=== PATIENT | male | born 1950 | race Caucasian/White ===

== ENCOUNTER 2017-08-18 20:44 | Inpatient (IN) | payer OTHER, MEDICARE ==
[~2017-08-18] VITALS: Ht 182.9 cm; Wt 113.9 kg
[~2017-08-18 20:44] MED LIST: ASPI-1009 PO; CHOL100010 PO; CLON-529 PO; CYCL-394 PO; FURO-150 PO; INSU100V15; LANTUS SQ; LISI40TA4 PO; LOP25T PO; METF500T PO; MIN5C PO; SIMV20TA5 PO; VENL-190 PO; WEL75T PO
[2017-08-18 21:26] LABS: ABG BASE EXCESS -7.2 mmol/L (-2.0-3.0); ABG HCO3 17.6 mmol/L (22.0-26.0); ABG OXYGEN SATURATION 86.6 % (95-98); ABG PCO2 (T) 38.8 mmHg (35.0-48.0); ABG PO2 (T) 71.2 mmHg (83-108); FCOHb 0.8 % (0.5-1.5); FO2Hb 85.9 % (94-100); MINUTE VOLUME 10 L/min; PEEP 5 cm H2O; RESPIRATORY RATE 22 b/min; RESPIRATORY RATE (OBSERVED) 22 b/min; TIDAL VOLUME 450 mL; TOTAL HEMOGLOBIN 14.1 G/dl (14.0-18.0)
[2017-08-18] MEDS ORDERED: metroNIDAZOLE-Flagyl 500mg/NS 100 ML IV STA (21:29)
[2017-08-18] MEDS ORDERED: propofol 1000mg/100ml bottle 100 ML IV ONE (21:30)
[2017-08-18] MEDS ORDERED: etomidate 2mg/ml inj. IV ONE (21:30)
[2017-08-18] MEDS ORDERED: normal saline 1000ML IV soln IV ONE (21:30)
[2017-08-18] MEDS ORDERED: MIDAZolam 5mg/ml 2ml vial IV ONE (21:30)
[2017-08-18] MEDS ORDERED: rocuronium 10mg/ml inj IV ONE (21:30)
[2017-08-18] MEDS ORDERED: piperacillin/tazo 3.375gm/50ml 50 ML IV ONE (21:30)
[2017-08-18] MEDS ORDERED: vancomycin/NS 1 GM ADD-VANTAGE 250 ML IV ONE (21:30)
[2017-08-18] MEDS ORDERED: fentaNYL/PF 50MCG/1 ML 2ML syringe IV ONE (21:30)
[2017-08-18 21:31] LABS: OXYGEN SATURATION (MIXED VEN) 66.7 % (60-80); PO2 MIXED VENOUS (TEMP COR) 46.4 mmHg (35-46)
[2017-08-18 21:46] LABS: BASOPHILS % (AUTO) 0 % (0-1); EOSINOPHILS % (AUTO) 0 % (0-6); HEMATOCRIT 39.6 % (42.0-52.0); HEMOGLOBIN 13.3 g/dl (14.0-17.9); LYMPHOCYTES # (AUTO) 0.2 X10'3 (1.1-4.8); LYMPHOCYTES % (AUTO) 1.8 % (21-51); MEAN CORPUSCULAR HEMOGLOBIN 30.4 PG (27.0-31.0); MEAN CORPUSCULAR HGB CONC 33.6 % (33.0-36.5); MEAN CORPUSCULAR VOLUME 90.3 FL (78-98); MEAN PLATELET VOLUME 7.8 FL (7.4-10.4); MONOCYTES % (AUTO) 0.2 % (2-12); NEUTROPHILS # (AUTO) 8.4 X10'3 (1.8-7.7); PLATELET COUNT 247 X10'3 (140-440); RED BLOOD COUNT 4.38 X10'6 (4.70-6.10); RED CELL DISTRIBUTION WIDTH 13.6 % (11.5-14.5); WHITE BLOOD COUNT 8.6 X10'3 (4.5-11.0)
[2017-08-18] MEDS ORDERED: acetaminophen 650mg rectal suppository RC ONE (21:50)
[2017-08-18 21:53] LABS: INR 1.2 INR; PARTIAL THROMBOPLASTIN TIME 22 SECONDS (22-32)
[2017-08-18 21:57] LABS: CLARITY,URINE CLOUDY (Clear); COLOR,URINE RED (Yellow); GLUCOSE, URINE 250 mg/dl (Neg); KETONES,URINE NEGATIVE (Neg); LEUKOCYTE ESTERASE ,URINE MODERATE (Neg); NITRITES, URINE POSITIVE (Neg); OCCULT BLOOD,URINE LARGE (Neg); PH,URINE 5.5 (4.8-8.0); PROTEIN,URINE >=300 mg/dl (Neg); UROBILINOGEN,URINE 0.2 E.U/dL (0.2-1.0)
[2017-08-18 22:07] LABS: UA COLLECTION TYPE FOLEY CATH
[2017-08-18 22:08] LABS: RBC,URINE 20-50 /HPF (0-2); WBC,URINE 50-100 /HPF (0-4)
[2017-08-18 22:09] LABS: MUCUS STRANDS FEW /LPF (Neg); SQUAMOUS EPITHELIAL CELL,UR FEW /LPF (FEW); TRANSITIONAL EPI CELLS,URINE FEW /HPF; WBC CLUMPS,URINE MANY /HPF (NEGATIVE)
[2017-08-18 22:10] LABS: AMORPHOUS URATES 1+; BACTERIA,URINE 2+ /HPF (Neg)
[2017-08-18 22:14] LABS: HIV ANTIBODY 1&2 RAPID NON-REACTIVE (Neg)
[2017-08-18 22:19] LABS: ALANINE AMINOTRANSFERASE 49 U/L (12-78); ALBUMIN 2.5 G/DL (3.4-5.0); ALBUMIN/GLOBULIN RATIO 0.8 (1.1-1.5); ALKALINE PHOSPHATASE 89 IU/L (46-116); ANION GAP 17 (8-16); ASPARTATE AMINO TRANSFERASE 21 U/L (10-37); BILIRUBIN,TOTAL 0.5 MG/DL (0.1-1.0); BLOOD UREA NITROGEN 22 MG/DL (7-18); BUN/CREATININE RATIO 9.8 (5.4-32.0); CALCIUM 7.8 MG/DL (8.5-10.1); CHLORIDE 109 MMOL/L (99-107); CREATINE KINASE 130 U/L (39-308); CREATININE 2.24 MG/DL (0.60-1.10); GLUCOSE 117 MG/DL (70-104); MAGNESIUM 1.2 MG/DL (1.5-2.4); POTASSIUM 3.5 MMOL/L (3.5-5.1); SODIUM 147 MMOL/L (135-145); TOTAL PROTEIN 5.8 G/DL (6.4-8.2); eGFR 29 ML/MIN
[2017-08-18] MEDS ORDERED: insulin regular, DKA only 100 UNIT in normal saline 100ml IV soln 99 ML IV SCH ×2 (22:39)
[2017-08-18] MEDS ORDERED: insulin regular, human 10 units/0.1 ml syringe SQ PRN (22:40)
[2017-08-18 23:02] LABS: PHOSPHORUS 1.6 MG/DL (2.3-4.5)
[2017-08-18] MEDS ORDERED: LISI40TA4 (23:59)
[2017-08-18] MEDS ORDERED: ATOR40TA14 (23:59)
[2017-08-18] MEDS ORDERED: CYAN-19 (23:59)
[2017-08-18] MEDS ORDERED: BUPR150T6 (23:59)
[2017-08-18] MEDS ORDERED: CHOL100046 (23:59)
[2017-08-18] MEDS ORDERED: OXYB5TAB11 (23:59)
[2017-08-18] MEDS ORDERED: INSU100V13 (23:59)
[2017-08-18] MEDS ORDERED: FURO-61 (23:59)
[2017-08-18] MEDS ORDERED: METO37.5 (23:59)
[2017-08-18] MEDS ORDERED: CLON-529 (23:59)
[2017-08-18] MEDS ORDERED: PRAZ5CAP (23:59)
[2017-08-18] MEDS ORDERED: VENL150C2 (23:59)
[2017-08-18] MEDS ORDERED: CLOP75TA33 (23:59)
[2017-08-18] MEDS ORDERED: ASPI-100 (23:59)
[2017-08-19] VITALS (18 sets, daily range): BP systolic 71–120; BP diastolic 49–74
[2017-08-19] MEDS ORDERED: MIDAZolam 5mg/ml 2ml vial IV ONE ×2 (00:15→03:05)
[2017-08-19] MEDS ORDERED: magnesium 4gm in 100ml NS 100 ML IV PRN (00:30)
[2017-08-19] MEDS ORDERED: sodium phosphate inj. 30 MMOL in dextrose 5%-water 250 ML IV PRN ×2 (00:30→17:26)
[2017-08-19] MEDS ORDERED: mag hydrox/Alum hydrox/simeth 30ml oral suspension PO PRN (00:30)
[2017-08-19] MEDS ORDERED: sodium phosphate inj. 15 MMOL in dextrose 5%-water 150 ML IV PRN ×2 (00:30→17:26)
[2017-08-19] MEDS ORDERED: acetaminophen 325mg tablet PO PRN (00:30)
[2017-08-19] MEDS ORDERED: magnesium 2GM in 50ml NS 50 ML IV PRN (00:30)
[2017-08-19] MEDS ORDERED: MORPHINE 2MG in 2ml NS syringe IV PRN (00:30)
[2017-08-19] MEDS ORDERED: magnesium hydroxide 30ml (MOM) UD suspension PO PRN (00:30)
[2017-08-19] MEDS ORDERED: ondansetron/PF 4mg/2ml inj IV PRN ×2 (00:30)
[2017-08-19] MEDS ORDERED: NORepinephrine 8mg/ 250ml NS 250 ML IV SCH (00:45)
[2017-08-19] MEDS ORDERED: acetaminophen 650mg rectal suppository RC ONE (00:50)
[2017-08-19] MEDS ORDERED: fentaNYL/NS/PF 2,500mcg/250ml 250 ML IV PRN (01:55)
[2017-08-19] MEDS ORDERED: piperacillin/tazo 3.375gm/50ml 50 ML IV SCH (02:49)
[2017-08-19] MEDS: K, MAG and/or Phos replacement - Verify level? MC SCH ×2 (03:00→08:00)
[2017-08-19] MEDS ORDERED: normal saline 1000ml 1,000 ML IV SCH (03:40)
[2017-08-19] MEDS ORDERED: insulin regular, human 10 units/0.1 ml syringe SQ PRN (03:40)
[2017-08-19] MEDS ORDERED: potassium CL 20mEq in D5-1/2NS 1,000 ML IV PRN (03:40)
[2017-08-19] MEDS ORDERED: sodium bicarbonate (8.4%) inj. 100 MEQ in sodium chloride 0.45% 500ml 500 ML IV PRN (03:40)
[2017-08-19] MEDS ORDERED: insulin regular, DKA only 100 UNIT in normal saline 100ml IV soln 99 ML IV SCH ×2 (03:40)
[2017-08-19] MEDS ORDERED: sodium bicarbonate (8.4%) inj. 50 MEQ in sodium chloride 0.45% 500ml 250 ML IV PRN (03:40)
[2017-08-19 03:56] LABS: ABG BASE EXCESS -8.2 mmol/L (-2.0-3.0); ABG HCO3 15.7 mmol/L (22.0-26.0); ABG OXYGEN SATURATION 91.5 % (95-98); ABG PCO2 (T) 31.4 mmHg (35.0-48.0); ABG PH (T) 7.326 (7.350-7.450); ABG PO2 (T) 72.6 mmHg (83-108); FCOHb 0.9 % (0.5-1.5); FO2Hb 90.7 % (94-100); PATIENT TEMPERATURE 39.2; PEEP 8 cm H2O; RESPIRATORY RATE 22 b/min; RESPIRATORY RATE (OBSERVED) 35 b/min; TIDAL VOLUME 450 mL; TOTAL HEMOGLOBIN 14.8 G/dl (14.0-18.0)
[2017-08-19] MEDS ORDERED: dextrose 50%-water 50ml dispensing syringe IV ONE (03:57)
[2017-08-19] MEDS: piperacillin-tazo 2.25gm/50ml 50 ML IV SCH ×4 (04:00→19:59)
[2017-08-19] MEDS: normal saline 1000ml 1,000 ML IV SCH ×2 (04:10→04:19)
[2017-08-19] MEDS: midazolam 100mg in NS 100ml 100 ML IV PRN ×3 (04:21→22:51)
[2017-08-19] MEDS: NORepinephrine 8mg/ 250ml NS 250 ML IV PRN ×2 (04:22→19:39)
[2017-08-19] MEDS ORDERED: vasopressin inj. 60 UNIT in normal saline 100ml IV soln 97 ML IV SCH (04:35)
[2017-08-19] MEDS ORDERED: vasoPRESSIN 20 units/ml inj. ONE (05:02)
[2017-08-19 05:13] LABS: ANION GAP 14 (8-16); BLOOD UREA NITROGEN 25 MG/DL (7-18); BUN/CREATININE RATIO 8.7 (5.4-32.0); CALCIUM 7.1 MG/DL (8.5-10.1); CHLORIDE 114 MMOL/L (99-107); CREATININE 2.88 MG/DL (0.60-1.10); GLUCOSE 135 MG/DL (70-104); SODIUM 149 MMOL/L (135-145); TOTAL CARBON DIOXIDE 20.6 MMOL/L (24-32); eGFR 22 ML/MIN
[2017-08-19 05:17] LABS: PHOSPHORUS 0.8 MG/DL (2.3-4.5)
[2017-08-19] MEDS ORDERED: Dextrose 10%-water IV solution 1,000 ML ONE (05:40)
[2017-08-19] MEDS ORDERED: sodium chloride inj. 154 MEQ in Dextrose 10%-water IV solution 961.5 ML IV SCH (05:40)
[2017-08-19] MEDS ORDERED: potassium CL 20mEq in D5-1/2NS 1,000 ML IV SCH (06:30)
[2017-08-19] MEDS ORDERED: vancomycin/NS 1 GM ADD-VANTAGE 250 ML IV PRN (06:45)
[2017-08-19] MEDS ORDERED: sod chloride 0.9% 10ml flush syringe IV ONE (08:00)
[2017-08-19] MEDS ORDERED: rocuronium 10mg/ml inj IV ONE (08:00)
[2017-08-19] MEDS: famotidine/PF 10 mg/ml inj IV SCH (08:00)
[2017-08-19 08:30] LABS: VANCOMYCIN,RANDOM 11.4 UG/ML
[2017-08-19] MEDS: acetaminophen 325mg tablet PO PRN ×2 (12:11→19:58)
[2017-08-19] MEDS ORDERED: Neutra Phos packet PO PRN (17:30)
[2017-08-19 17:35] LABS: ABG HCO3 12.6 mmol/L (22.0-26.0); ABG OXYGEN SATURATION 97.3 % (95-98); ABG PCO2 (T) 27.4 mmHg (35.0-48.0); ABG PH (T) 7.297 (7.350-7.450); ABG PO2 (T) 113.2 mmHg (83-108); ALLEN'S TEST Positive; FCOHb 0.3 % (0.5-1.5); FMetHb 0.2 % (0.3-1.12); FO2Hb 96.8 % (94-100); MINUTE VOLUME 17 L/min; PATIENT TEMPERATURE 40.1; PEEP 5 cm H2O; RESPIRATORY RATE 22 b/min; RESPIRATORY RATE (OBSERVED) 37 b/min; TIDAL VOLUME 500 mL; TOTAL HEMOGLOBIN 14.6 G/dl (14.0-18.0)
[2017-08-19] MEDS ORDERED: morphine 4 MG/ML inj SYRINge IV PRN ×2 (19:00→19:01)
[2017-08-19] MEDS ORDERED: insulin glargine (Lantus) pen - multi-dose SQ SCH (21:00)
[2017-08-19 21:02] LABS: ALANINE AMINOTRANSFERASE 100 U/L (12-78); ALBUMIN 2.1 G/DL (3.4-5.0); ALBUMIN/GLOBULIN RATIO 0.6 (1.1-1.5); ALKALINE PHOSPHATASE 61 IU/L (46-116); ANION GAP 15 (8-16); ASPARTATE AMINO TRANSFERASE 106 U/L (10-37); BILIRUBIN,TOTAL 0.6 MG/DL (0.1-1.0); BLOOD UREA NITROGEN 40 MG/DL (7-18); BUN/CREATININE RATIO 9.8 (5.4-32.0); CALCIUM 7.3 MG/DL (8.5-10.1); CHLORIDE 109 MMOL/L (99-107); CREATININE 4.08 MG/DL (0.60-1.10); GLUCOSE 169 MG/DL (70-104); SODIUM 141 MMOL/L (135-145); TOTAL CARBON DIOXIDE 16.7 MMOL/L (24-32); TOTAL PROTEIN 5.5 G/DL (6.4-8.2); eGFR 15 ML/MIN
[2017-08-19] MEDS ORDERED: sodium bicarbonate (8.4%) inj. 150 MEQ in dextrose 5%-water 1,000 ML IV SCH (22:00)
[2017-08-20] VITALS (17 sets, daily range): BP systolic 74–131; BP diastolic 42–79
[2017-08-20] MEDS: piperacillin-tazo 2.25gm/50ml 50 ML IV SCH ×2 (02:29→09:44)
[2017-08-20] MEDS: acetaminophen 325mg tablet PO PRN ×2 (02:30→09:45)
[2017-08-20 02:45] LABS: BASOPHILS % (AUTO) 0 % (0-1); EOSINOPHILS % (AUTO) 0 % (0-6); HEMATOCRIT 39.7 % (42.0-52.0); HEMOGLOBIN 13.4 g/dl (14.0-17.9); LYMPHOCYTES # (AUTO) 0.7 X10'3 (1.1-4.8); LYMPHOCYTES % (AUTO) 1.1 % (21-51); MEAN CORPUSCULAR HGB CONC 33.9 % (33.0-36.5); MEAN CORPUSCULAR VOLUME 91.7 FL (78-98); MEAN PLATELET VOLUME 9.6 FL (7.4-10.4); MONOCYTES # (AUTO) 2.3 X10'3 (0-0.9); MONOCYTES % (AUTO) 3.6 % (2-12); NEUTROPHILS # (AUTO) 60.2 X10'3 (1.8-7.7); NEUTROPHILS % (AUTO) 95.3 % (42-75); PLATELET COUNT 172 X10'3 (140-440); RED BLOOD COUNT 4.33 X10'6 (4.70-6.10); RED CELL DISTRIBUTION WIDTH 14.3 % (11.5-14.5)
[2017-08-20] MEDS ORDERED: VANCOMYCIN LEVEL IV SCH (03:00)
[2017-08-20 03:06] LABS: ALANINE AMINOTRANSFERASE 97 U/L (12-78); ALBUMIN 1.9 G/DL (3.4-5.0); ALBUMIN/GLOBULIN RATIO 0.6 (1.1-1.5); ALKALINE PHOSPHATASE 54 IU/L (46-116); ANION GAP 14 (8-16); ASPARTATE AMINO TRANSFERASE 89 U/L (10-37); BILIRUBIN,TOTAL 0.6 MG/DL (0.1-1.0); BLOOD UREA NITROGEN 45 MG/DL (7-18); BUN/CREATININE RATIO 9.9 (5.4-32.0); CALCIUM 6.7 MG/DL (8.5-10.1); CHLORIDE 108 MMOL/L (99-107); CREATININE 4.54 MG/DL (0.60-1.10); GLUCOSE 206 MG/DL (70-104); MAGNESIUM 1.2 MG/DL (1.5-2.4); PHOSPHORUS 2.1 MG/DL (2.3-4.5); PREALBUMIN 13.2 MG/DL (19-36); SODIUM 139 MMOL/L (135-145); TOTAL CARBON DIOXIDE 16.6 MMOL/L (24-32); VANCOMYCIN,RANDOM 23.3 UG/ML; eGFR 13 ML/MIN
[2017-08-20 03:24] LABS: WHITE BLOOD COUNT 63.2 X10'3 (4.5-11.0)
[2017-08-20] MEDS: NORepinephrine 8mg/ 250ml NS 250 ML IV PRN ×2 (03:57→09:48)
[2017-08-20] MEDS ORDERED: magnesium 2GM in 50ml NS 50 ML IV ONE (04:00)
[2017-08-20] MEDS: midazolam 100mg in NS 100ml 100 ML IV PRN ×3 (04:32→15:30)
[2017-08-20 04:35] LABS: ABG BASE EXCESS -9.9 mmol/L (-2.0-3.0); ABG HCO3 14.4 mmol/L (22.0-26.0); ABG OXYGEN SATURATION 98.7 % (95-98); ABG PCO2 (T) 29.6 mmHg (35.0-48.0); ABG PH (T) 7.313 (7.350-7.450); ABG PO2 (T) 138.6 mmHg (83-108); ALLEN'S TEST Positive; FCOHb 0.6 % (0.5-1.5); FMetHb 0.3 % (0.3-1.12); FO2Hb 97.8 % (94-100); MINUTE VOLUME 18 L/min; PATIENT TEMPERATURE 38.5; PEEP 5 cm H2O; RESPIRATORY RATE 22 b/min; RESPIRATORY RATE (OBSERVED) 31 b/min; TIDAL VOLUME 500 mL; TOTAL HEMOGLOBIN 13.6 G/dl (14.0-18.0)
[2017-08-20 06:17] LABS: PLATELET ESTIMATE NORMAL; TOTAL CELLS COUNTED 100
[2017-08-20 06:18] LABS: POIKILOCYTOSIS FEW
[2017-08-20] MEDS: famotidine/PF 10 mg/ml inj IV SCH (08:00)
[2017-08-20] MEDS ORDERED: morphine/NS 100mg/100ml bag 100 ML IV SCH (11:50)
[2017-08-20] MEDS: morphine/NS 100mg/100ml bag 100 ML IV SCH ×2 (13:26→15:31)
[2017-08-20 13:40] LABS: HEP B CORE AB, IGM Negative (Negative); HEP B CORE AB, TOT Negative (Negative); HEPATITIS C ANTIBODY 0.1 s/co ratio (0.0-0.9)
== END 2017-08-20 17:50 | disposition expired | DRG 871 ==
LOC: ER 20:44 → ED HOLD 08-19 00:29 → CICU 2S 08-19 05:15
PROVIDERS: ADMIT Internal Medicine Critical Care Medicine; ATTEND Internal Medicine Critical Care Medicine
PROC: 5A1945Z Respiratory Ventilation, 24-96 Consecutive Hours (ICD-10-PCS; principal; 2017-08-18)
PROC: 0BH17EZ Insertion of Endotracheal Airway into Trachea, Via Natural or Artificial Opening (ICD-10-PCS; 2017-08-18)
PROC: 0D9670Z Drainage of Stomach with Drainage Device, Via Natural or Artificial Opening (ICD-10-PCS; 2017-08-18)
PROC: 02HV33Z Insertion of Infusion Device into Superior Vena Cava, Percutaneous Approach (ICD-10-PCS; 2017-08-18)
PROC: B548ZZA Ultrasonography of Superior Vena Cava, Guidance (ICD-10-PCS; 2017-08-18)
DX: A40.9 Streptococcal sepsis, unspecified (principal); J96.01 Acute respiratory failure with hypoxia; R65.21 Severe sepsis with septic shock; E87.4 Mixed disorder of acid-base balance; J18.9 Pneumonia, unspecified organism; E10.10 Type 1 diabetes mellitus with ketoacidosis without coma; I13.0 Hypertensive heart and chronic kidney disease with heart failure and stage 1 through stage 4 chronic kidney disease, or unspecified chronic kidney disease; I50.9 Heart failure, unspecified; N17.9 Acute kidney failure, unspecified; I31.3 Pericardial effusion (noninflammatory); D64.9 Anemia, unspecified; D35.02 Benign neoplasm of left adrenal gland; E10.42 Type 1 diabetes mellitus with diabetic polyneuropathy; D35.01 Benign neoplasm of right adrenal gland; E10.22 Type 1 diabetes mellitus with diabetic chronic kidney disease; D49.511 Neoplasm of unspecified behavior of right kidney; N30.91 Cystitis, unspecified with hematuria; M25.569 Pain in unspecified knee; F43.10 Post-traumatic stress disorder, unspecified; N18.9 Chronic kidney disease, unspecified; K29.00 Acute gastritis without bleeding; N28.1 Cyst of kidney, acquired; Z51.5 Encounter for palliative care; Z99.3 Dependence on wheelchair; Z79.899 Other long term (current) drug therapy; Z79.4 Long term (current) use of insulin; Z85.858 Personal history of malignant neoplasm of other endocrine glands; Z86.73 Personal history of transient ischemic attack (TIA), and cerebral infarction without residual deficits; Z87.442 Personal history of urinary calculi
CPT/HCPCS: 36415; 36600; 70450; 71045; 71250; 74176; 80048; 80053; 80202; 81001; 82330; 82550; 82553; 82803; 82810; 82948; 83605; 83735; 83874; 84100; 84134; 84145; 85018; 85025; 85610; 85730; 86703; 86704; 86705; 86706; 86803; 86885; 86900; 86901; 87040; 87070; 87077; 87088; 87186; 93005; 94002; 94003; 94760; 96365; 96367; 96375; 99291; A6213; C1751; J1815; J2250; J2270; J2274; J2543; J2704; J3010; J3370; J3475; J3490; J7030; J7060; J7131